=== PATIENT | female | born 1980 | race Caucasian/White ===

== ENCOUNTER → 2016-09-05 | Outpatient (CLI) | payer OTHER ==
[~2016-09-05] MED LIST: ACET-1311 PO; AMT25 PO; CIPR-255 PO; FLM4 PO; ONDA4TAB10 SL; OXYB5TAB74 PO; OXYC1TAB3 PO; PRLSR20 PO; SENN8.6T36 PO
[2016-09-05 12:50] LABS: MEAN CELL VOLUME 88.5 fL (80-100); MEAN CORPUSCULAR HEMOGLOBIN 29.6 pg (25-34); MEAN CORPUSCULAR HGB CONC 33.5 g/dl (32-36); MEAN PLATELET VOLUME 9.3 fL (7.4-10.4); PLATELET COUNT 252 K/uL (130-400); RED BLOOD COUNT 4.52 M/uL (4.2-5.4); WHITE BLOOD COUNT 6.18 K/uL (4.8-10.8)
[2016-09-05 13:13] LABS: THYROID STIMULATING HORMONE 2.42 uIu/ml (0.300-4.500)
== END | disposition home or self-care (01) ==
LOC: C.LABBFT 11:08
PROVIDERS: ATTEND Internal Medicine
DX: R53.83 Other fatigue (principal)

== ENCOUNTER → 2017-04-18 | Outpatient (CLI) | payer OTHER ==
[~2017-04-18] MED LIST changes: -ONDA4TAB10 SL
--- NOTE | 2017-04-18 13:51 | DIAGNOSTIC IMAGING REPORT ---
PELVIS/BILATERAL HIP 2 VIEWS HISTORY: 37 years-old Female M25.551 Bilateral hip [id number] acute bilateral hip pain without trauma. COMPARISON: CT abdomen and pelvis 05/19/2016 TECHNIQUE: AP view of the pelvis with AP and frog-leg views of the bilateral hips. FINDINGS: Bony pelvis appears intact without acute fracture, dislocation or significant degenerative changes. Bilateral femoral acetabular joints are located and appear normal without fracture or dislocation. IMPRESSION: No acute fracture, dislocation or significant degenerative changes of the pelvis or bilateral hips. The above report was generated using voice recognition software. It may contain grammatical, syntax or spelling errors. Electronically signed by: Robbin Arrieta M.D. 04/18/2017 1:50 PM Dictated Date/Time: 04/18/2017 1:48 PM
== END | disposition home or self-care (01) ==
LOC: C.RAD 13:25
PROVIDERS: ATTEND Physician Assistant Medical
DX: M25.551 Pain in right hip (principal); M25.552 Pain in left hip